=== PATIENT | female | born 1980 | race Caucasian/White ===

== ENCOUNTER → 2017-01-17 | Outpatient (CLI) | payer OTHER ==
[2017-01-17 11:51] LABS: HEMOGLOBIN 14.2 gm/dl (12.3-15.3); WHITE BLOOD COUNT 9.9 K/UL (4.5-11.0)
[2017-01-17 12:01] LABS: BUN/CREATININE RATIO 15 (0-10)
== END ==
LOC: LAB 10:40
PROVIDERS: Nurse Practitioner Psychiatric/Mental Health
DX: I10 Essential (primary) hypertension (principal); E11.9 Type 2 diabetes mellitus without complications; F41.1 Generalized anxiety disorder
CPT/HCPCS: 36415; 80053; 80061; 82043; 83036; 84443; 85025

== ENCOUNTER → 2021-03-01 | Outpatient (CLI) | payer OTHER | LOC: HEART 5 08:30 | DX: R07.9 Chest pain, unspecified (principal) | CPT/HCPCS: 78452; 93306; A9502; J2785 ==

== ENCOUNTER → 2021-04-29 | Outpatient (CLI) | payer OTHER ==
[~2021-04-29] MED LIST: 24 HOUR ALLERG9.9 ML; ALL DAY ALLERGY10 M2 PO; ASPIRIN 325MG325 MG PO; ATORVASTATIN CA80 MG PO; AUGMENTIN 875-1 EACH PO; CODEINE PO; DECADRON6 MG PO; ELIQUIS 2.5 MG2.5 MG PO; FIORINAL PO; FISH OIL 1,0001 EAC3 PO; GLUCOTROL5 MG PO; HYDROCHLOROTHIA25 MG PO; IPRAT-ALBUT 0.5-3 ML NEB; ISOSORBIDE MONO60 MG PO; LEXAPRO10 MG PO; METFORMIN HCL1000 M1 PO; METOPROLOL TART25 MG PO; MOBIC7.5 MG PO; MONTELUKAST SOD10 MG PO; NAPROSYN EC 50500 MG PO; OMEPRAZOLE20 MG PO; TOPIRAMATE100 MG PO; VITAMIN C 500500 MG PO
[2021-04-29 11:45] LABS: HEMOGLOBIN 14.3 gm/dl (12.3-15.3); RED BLOOD COUNT 4.91 M/UL (4.00-5.10); WHITE BLOOD COUNT 10.5 K/UL (4.5-11.0)
[2021-04-29 12:00] LABS: BUN/CREATININE RATIO 20 (0-10)
== END ==
LOC: LAB 10:50
PROVIDERS: Internal Medicine Interventional Cardiology
DX: I20.9 Angina pectoris, unspecified (principal); R07.9 Chest pain, unspecified; I10 Essential (primary) hypertension; E78.00 Pure hypercholesterolemia, unspecified; E11.9 Type 2 diabetes mellitus without complications
CPT/HCPCS: 36415; 80048; 85025; 85610; 85730

== ENCOUNTER → 2021-05-10 | Outpatient (CLI) | payer OTHER ==
[~2021-05-10] MED LIST changes: -AUGMENTIN 875-1 EACH PO; -DECADRON6 MG PO; -ELIQUIS 2.5 MG2.5 MG PO; -IPRAT-ALBUT 0.5-3 ML NEB; -VITAMIN C 500500 MG PO
[2021-05-10 08:40] LABS: HEMOGLOBIN 13.4 gm/dl (12.3-15.3); RED BLOOD COUNT 4.69 M/UL (4.00-5.10); WHITE BLOOD COUNT 10.6 K/UL (4.5-11.0)
[2021-05-10 09:03] LABS: BUN/CREATININE RATIO 18 (0-10)
== END ==
LOC: CATH 08:01
PROVIDERS: Internal Medicine Interventional Cardiology
DX: I20.8 Other forms of angina pectoris (principal); J45.909 Unspecified asthma, uncomplicated; I10 Essential (primary) hypertension; E11.9 Type 2 diabetes mellitus without complications; Z79.82 Long term (current) use of aspirin; F41.9 Anxiety disorder, unspecified; F41.8 Other specified anxiety disorders; K21.9 Gastro-esophageal reflux disease without esophagitis; E78.00 Pure hypercholesterolemia, unspecified; Z79.84 Long term (current) use of oral hypoglycemic drugs; Z98.51 Tubal ligation status; R06.02 Shortness of breath; R94.39 Abnormal result of other cardiovascular function study; Z20.822 Contact with and (suspected) exposure to COVID-19
CPT/HCPCS: 36415; 80048; 82962; 85025; 85610; 85730; 93005; 99152; 99153; C1769; C1894; J1644; J2250; J3010; J7030; Q9967

== ENCOUNTER 2021-06-17 16:07 | Inpatient (IN) | payer OTHER ==
[~2021-06-17] VITALS: Ht 172.7 cm; Wt 125.0 kg
[~2021-06-17 16:07] MED LIST changes: -24 HOUR ALLERG9.9 ML
[2021-06-17 17:25] LABS: HEMOGLOBIN 12.4 gm/dl (12.3-15.3); RED BLOOD COUNT 4.52 M/UL (4.00-5.10); WHITE BLOOD COUNT 14.4 K/UL (4.5-11.0)
[2021-06-18 04:44] LABS: RED BLOOD COUNT 4.34 M/UL (4.00-5.10); WHITE BLOOD COUNT 16.6 K/UL (4.5-11.0)
[2021-06-18] MEDS ORDERED: 24 HOUR ALLERG9.9 ML (09:17)
[2021-06-18 20:24] LABS: BUN/CREATININE RATIO 36 (0-10)
[2021-06-19 05:07] LABS: HEMOGLOBIN 11.6 gm/dl (12.3-15.3); RED BLOOD COUNT 4.16 M/UL (4.00-5.10)
[2021-06-19 05:28] LABS: BUN/CREATININE RATIO 37 (0-10)
[2021-06-20 05:01] LABS: HEMOGLOBIN 11.4 gm/dl (12.3-15.3); RED BLOOD COUNT 4.1 M/UL (4.00-5.10); WHITE BLOOD COUNT 20.5 K/UL (4.5-11.0)
[2021-06-20 05:23] LABS: BUN/CREATININE RATIO 39 (0-10)
[2021-06-21 08:27] LABS: HEMOGLOBIN 11.8 gm/dl (12.3-15.3); RED BLOOD COUNT 4.24 M/UL (4.00-5.10); WHITE BLOOD COUNT 16.8 K/UL (4.5-11.0)
[2021-06-21 08:53] LABS: BUN/CREATININE RATIO 45 (0-10)
[2021-06-22 05:16] LABS: HEMOGLOBIN 11.5 gm/dl (12.3-15.3); RED BLOOD COUNT 4.08 M/UL (4.00-5.10); WHITE BLOOD COUNT 16.4 K/UL (4.5-11.0)
[2021-06-22 05:41] LABS: BUN/CREATININE RATIO 41 (0-10)
[2021-06-23 05:35] LABS: HEMOGLOBIN 11.8 gm/dl (12.3-15.3); RED BLOOD COUNT 4.09 M/UL (4.00-5.10)
[2021-06-23 06:02] LABS: BUN/CREATININE RATIO 48 (0-10)
--- NOTE | 2021-06-23 23:27 | NUR ---
TEMP 102. TYLENOL 500MG ADMINISTERED. RESTLESS, ATTEMPTING TO SIT UP IN BED. REACHING HANDS TO ETT. ATTEMPTS TO CALM AND REASSURE MADE. REPOSITIONED FOR COMFORT. TITRATING DIPRIVAN FOR SEDATION .
--- NOTE | 2021-06-24 01:17 | NUR ---
TEMP REMAINS 102 AFTER TYLENOL WAS ADMINISTERED. COOLING BLANKET APPLIED .
[2021-06-24 05:08] LABS: HEMOGLOBIN 12.2 gm/dl (12.3-15.3); RED BLOOD COUNT 4.25 M/UL (4.00-5.10); WHITE BLOOD COUNT 15.4 K/UL (4.5-11.0)
[2021-06-24 05:43] LABS: BUN/CREATININE RATIO 48 (0-10)
--- NOTE | 2021-06-24 19:14 | NUR ---
ASSESSMENT COMPLETED CHARTED. BILAT WRIST RESTRAINTS IN PLACE ORDERED ( FLOW SHEET IN CHART ). TEMP 103 , COOLING BALNKET IS APPLIED WITH CONTINUOUS MONITORING . TYLENOL 500 MG ELIXER ADMINISTERED VIA OGT. NO DISTRESS OR DISCOMFORT NOTED AT THIS TIME.
--- NOTE | 2021-06-24 21:49 | NUR ---
TEMP REMAINS 103. ICE PACKS APPLIED TO AXILLARY AND GROIN AREAS BILAT.
[2021-06-25 05:06] LABS: HEMOGLOBIN 12.7 gm/dl (12.3-15.3); RED BLOOD COUNT 4.36 M/UL (4.00-5.10); WHITE BLOOD COUNT 14.4 K/UL (4.5-11.0)
[2021-06-25 05:38] LABS: BUN/CREATININE RATIO 51 (0-10)
[2021-06-26 05:35] LABS: HEMOGLOBIN 11.9 gm/dl (12.3-15.3); RED BLOOD COUNT 4.32 M/UL (4.00-5.10); WHITE BLOOD COUNT 15.2 K/UL (4.5-11.0)
[2021-06-26 06:01] LABS: BUN/CREATININE RATIO 57 (0-10)
[2021-06-27 04:17] LABS: HEMOGLOBIN 12.2 gm/dl (12.3-15.3); RED BLOOD COUNT 4.32 M/UL (4.00-5.10)
[2021-06-27 04:37] LABS: BUN/CREATININE RATIO 44 (0-10)
[2021-06-27 04:51] LABS: WHITE BLOOD COUNT 11.3 K/UL (4.5-11.0)
[2021-06-28 03:36] LABS: HEMOGLOBIN 11.4 gm/dl (12.3-15.3); RED BLOOD COUNT 3.99 M/UL (4.00-5.10); WHITE BLOOD COUNT 8.6 K/UL (4.5-11.0)
[2021-06-28 04:11] LABS: BUN/CREATININE RATIO 39 (0-10)
[2021-06-29 02:58] LABS: HEMOGLOBIN 12.9 gm/dl (12.3-15.3); WHITE BLOOD COUNT 9.1 K/UL (4.5-11.0)
[2021-06-29 03:02] LABS: RED BLOOD COUNT 4.53 M/UL (4.00-5.10)
[2021-06-29 03:28] LABS: BUN/CREATININE RATIO 30 (0-10)
[2021-06-30 04:10] LABS: HEMOGLOBIN 11.6 gm/dl (12.3-15.3); RED BLOOD COUNT 4.11 M/UL (4.00-5.10); WHITE BLOOD COUNT 9.3 K/UL (4.5-11.0)
[2021-06-30 04:31] LABS: BUN/CREATININE RATIO 27 (0-10)
[2021-06-30] MEDS ORDERED: ELIQUIS 2.5 MG2.5 MG PO (11:33)
[2021-06-30] MEDS ORDERED: IPRAT-ALBUT 0.5-3 ML NEB (11:33)
[2021-06-30] MEDS ORDERED: DECADRON6 MG PO (11:33)
[2021-06-30] MEDS ORDERED: VITAMIN C 500500 MG PO (11:33)
[2021-06-30] MEDS ORDERED: AUGMENTIN 875-1 EACH PO (11:33)
--- NOTE | 2021-06-30 12:38 | NUR ---
PT UP WALKING AROUND ON ROOM AIR, O2 SAT DROPPED TO 86%, PLACED BACK ON O2 AT 3L NC.
== END 2021-06-30 14:46 | disposition home or self-care (01) | DRG 207 ==
LOC: ER1 16:07 → CCU 19:07 → PROG CARE 19:07 → CDU 19:07 → CCU 21:12 → PROG CARE 06-27 16:25
PROVIDERS: Internal Medicine; Internal Medicine Nephrology; Internal Medicine Pulmonary Disease; Student in an Organized Health Care Education/Training Program; Surgery; ADMIT Internal Medicine
PROC: 5A1955Z Respiratory Ventilation, Greater than 96 Consecutive Hours (ICD-10-PCS; principal; 2021-06-17)
PROC: XW033E5 Introduction of Remdesivir Anti-infective into Peripheral Vein, Percutaneous Approach, New Technology Group 5 (ICD-10-PCS; 2021-06-17)
PROC: 3E0333Z Introduction of Anti-inflammatory into Peripheral Vein, Percutaneous Approach (ICD-10-PCS; 2021-06-17)
PROC: 8E0ZXY6 Isolation (ICD-10-PCS; 2021-06-17)
PROC: 0BH17EZ Insertion of Endotracheal Airway into Trachea, Via Natural or Artificial Opening (ICD-10-PCS; 2021-06-17)
PROC: XW033G5 Introduction of Sarilumab into Peripheral Vein, Percutaneous Approach, New Technology Group 5 (ICD-10-PCS; 2021-06-17)
PROC: 0DH63UZ Insertion of Feeding Device into Stomach, Percutaneous Approach (ICD-10-PCS; 2021-06-18)
PROC: 3E0G76Z Introduction of Nutritional Substance into Upper GI, Via Natural or Artificial Opening (ICD-10-PCS; 2021-06-18)
DX: U07.1 COVID-19 (principal); J12.82 Pneumonia due to coronavirus disease 2019; J80 Acute respiratory distress syndrome; N17.0 Acute kidney failure with tubular necrosis; G93.41 Metabolic encephalopathy; R65.20 Severe sepsis without septic shock; A41.89 Other specified sepsis; E87.2 Acidosis; Z68.41 Body mass index [BMI] 40.0-44.9, adult; E87.70 Fluid overload, unspecified; E66.01 Morbid (severe) obesity due to excess calories; E11.65 Type 2 diabetes mellitus with hyperglycemia; M19.90 Unspecified osteoarthritis, unspecified site; G43.909 Migraine, unspecified, not intractable, without status migrainosus; J30.9 Allergic rhinitis, unspecified; I25.10 Atherosclerotic heart disease of native coronary artery without angina pectoris; E78.5 Hyperlipidemia, unspecified; K21.9 Gastro-esophageal reflux disease without esophagitis; F32.9 Major depressive disorder, single episode, unspecified; I10 Essential (primary) hypertension; R74.01 Elevation of levels of liver transaminase levels; Z79.82 Long term (current) use of aspirin; Z79.01 Long term (current) use of anticoagulants; Z23 Encounter for immunization
CPT/HCPCS: 31500; 36415; 36556; 36600; 43752; 51702; 71045; 80048; 80053; 82550; 82553; 82728; 82803; 82962; 83036; 83605; 83615; 83735; 83874; 83880; 84100; 84439; 84443; 84484; 85025; 85027; 85379; 85384; 85610; 86140; 87040; 87070; 87077; 87081; 87086; 87186; 87205; 92526; 92610; 93242; 93970; 94002; 94003; 94640; 94760; 97110; 97110-GP-CQ; 97162; 97166; 97530; 97535; 99291; A6212; C1751; C9113; J1100; J1120; J1205; J1650; J1940; J2020; J2185; J2704; J3010; J3475; J7030; J7050; J7070; U0002

== ENCOUNTER → 2021-07-30 | Outpatient (CLI) | payer OTHER ==
[~2021-07-30] MED LIST changes: +24 HOUR ALLERG9.9 ML; +AUGMENTIN 875-1 EACH PO; +DECADRON6 MG PO; +ELIQUIS 2.5 MG2.5 MG PO; +IPRAT-ALBUT 0.5-3 ML NEB; +VITAMIN C 500500 MG PO
== END ==
LOC: EXRD 10:28
DX: U07.1 COVID-19 (principal); J12.82 Pneumonia due to coronavirus disease 2019
CPT/HCPCS: 71046